=== PATIENT | female | born 1980 | race Caucasian/White ===

== ENCOUNTER 2024-07-28 13:47 | Emergency (ER) | payer BC ==
--- OUTSIDE RECORDS SUMMARY | 2024-07-28 13:53 | XMS REPORT | Clinical Summary ---
Author Name Unknown Organization [facility] Address [address] [place] [address] Care Team Providers Care Manager Ems Name Role Phone Felipe Law MD Unavailable [phone] Alejandrina Juan RN Primary Care Provide r Phyllis Barber Unavailable Phyllis Barber Unavailable Allergies Active Allergy Reactions Criticality Noted Date Comments Tramadol Itching 07/04/2019 Insomnia Medications Medication Sig Dispensed Refills Start Date End Date Status multivitamin with minerals tablet Take 1 tablet by mouth daily. Active CALCIUM CITRATE ORAL Take 500 mg by mouth 4 (four) times a day. Active ZINC ACETATE ORAL Take 30 mg by mouth every evening. Active dextroamphetamine-amp hetamine (MYDAYIS) 12.5 mg CT24 Take 12.5 mg by mouth daily. Active VITAMIN K2 ORAL Take 1 capsule by mouth daily. Active UNABLE TO FIND Take 4 tablets by mouth daily. Nutrafol: Biotin, Zinc, Sellenium Active cetirizine (ZyrTEC) 10 mg tablet Take 10 mg by mouth daily. Active Active Problems Problem Noted Date Diagnosed Date Lump in left breast 07/04/2019 Surgical History Surgery Date Site/Laterality Comments STOMACH SURGERY 10/05/2017 - 10/04/2018 Gastric Bypass UPPER GASTROINTESTINAL ENDOSCOPY 10/05/2017 - 10/04/2018 RECONSTRUCTION BREAST WITH BREAST IMPLANT 10/05/1999 - 10/04/2000 breast reduction Medical History Medical History Date Comments Migraine 2001 migraines with a ura Allergic rhinitis 1999 Sinusitis 1999 Fatty liver 2018 +Biopsy during G astric Bypass Anxiety 2008 Family History Medical History Relation Name Comments -Breast cancer Mother Ana Stewart diagnosed age 54 Relation Name Status Comments Mother Ana Stewart Social History Tobacco Use Types Packs/Day Years Used Date Smoking Tobacco: Never Smokeless Tobacco: Never Alcohol Use Standard Drinks/Week Comments Yes 0 (1 standard drink = 0.6 oz pur e alcohol) Education Answer Date Recorded What is the highest level of school you have completed or the highest degree you have received? Bachelor's degree (e.g., BA, AB, BS) 07/04/2019 Sex and Gender Information Value Date Recorded Sex Assigned at Not on file Gender Identity Not on file Sexual Orientation Not on file Obstetrics History Para Term AB IAB SAB Ectopic Multiple Livin g Live Births 3 1 Date Outcome GA Total Labor Labor//3rd Weight Sex Type Anes PTL Julieta A1 A5 Name Clin Para Comments Menarche: 14 Parity: 19 OBC: 15 Hormonal Therapy: None Last Pap: 11/2018 Abnormal Pap: None Last Lynne: None Last Colon: None Breast Bx: None Plan of Treatment Health Maintenance Due Date Last Done Comments COVID-19 Vaccine ( - 2023-2 5 season) 2024 Influenza Vaccine (#1) 2024 Pneumococcal Vaccine: Pediat rics (0 to 5 Years) and At-Risk Patients (6 to 64 Years) Aged Out No longer eligi ble based on patient's age to complete this topic Care Teams Manager Ems Relationship Specialty Start Date End Date Felipe Law MD [address] [facility] [address] [place] [address] PCP - External Primary Care Provider Family Practice 06/28/19 Alejandrina Jaun RN [facility] [place], [place] [id number] [email or web address] PCP - General Cancer Prevention 06/30/19 Phyllis Barber [address] [facility] [address] [place] [address] PCP - External Referring 04/22/23 Phyllis Barber [address] [address] PCP - External Follow Up A 04/22/23
[2024-07-28 17:24] LABS: Absolute Basophils 0.1 K/uL (0-0.5); Absolute Eosinophils 0.1 K/uL (0-0.5); Absolute Monocytes 0.4 K/uL (0.1-1.3); Absolute Neutrophil 5.6 K/uL (1.8-8.0); Basophils % 0.9 % (0-1.3); Eosinophils % 1.2 % (0-4.4); Hematocrit 35.7 % (36.0-45.0); Hemoglobin 11.3 g/dL (12.0-15.0); Lymphocytes % 14.1 % (15.3-44.8); MCH 27.7 pg (27.0-35.0); MCHC 31.7 g/dL (32.0-36.0); MCV 87.3 fL (80-100); MPV 8.5 fL (7.6-11.3); Monocytes % 6.1 % (3.3-12.3); Neutrophils % 77.7 % (41.7-73.7); Platelets 249 thou/uL (152-406); RBC Red Blood Cell Count 4.09 M/uL (3.86-4.86); Red Cell Distribution Width 19.9 % (12.1-15.2)
[2024-07-28 17:49] LABS: Albumin 2.6 g/dL (3.4-5.0); Albumin/Globulin Ratio 0.6 (1.1-1.8); Anion Gap 12.1 mEq/L (5.0-15.0); Bilirubin Total 1.3 mg/dL (0.2-1.0); Globulin 4.1 g/dL (2.3-3.5); Magnesium 1.5 mg/dL (1.6-2.4); Potassium 3.1 mEq/L (3.5-5.1); Protein, Total 6.7 g/dL (6.4-8.2)
--- NOTE | 2024-07-28 17:58 | RAD REPORT ---
EXAMINATION: CT Abdomen Pelvis W Contrast CLINICAL INDICATION: Female, 43 years old. ABD PAIN TECHNIQUE: CT abdomen and pelvis was performed, after the administration of 100 mL Isovue 300 intrave nously, as per department protocol. Axial, sagittal and coronal reconstructions were obtained. One or more of the following dose reduction techniques were used: Automated exposure control, adjustment of the mA and kV according to patient size, and iterative reconstruction. Unless otherwise specified, incidental findings do not require dedicated imaging follow-up. COMPARISON: No prior exam. FINDINGS: LOWER CHEST: The visualized lung bases are clear. LIVER: Normal in size and contour. Marked diffuse parenchymal hypoattenuation. No focal lesion. BILIARY SYSTEM: No suspicious abnormalities. SPLEEN: Normal size. No focal lesion. PANCREAS: No mass, ductal dilation, or ozzy-pancreatic fluid. Fat stranding and soft tissue swelling centered on the retroperitoneum, at the level of the uncinate process/third part of the duodenum. Mild duodenal wall thickening and mucosal hyperenhancement in this region. No extraluminal gas or fluid collections. ADRENALS: Normal; no mass. KIDNEYS: Normal size and contour. No hydronephrosis. URINARY BLADDER: Unremarkable. GASTROINTESTINAL TRACT: Sequelae of Lidia-en-Y gastric bypass. No evidence of free air, significant in tra-abdominal free fluid, bowel obstruction or abscess. Duodenal findings as above. APPENDIX: Normal appendix. LYMPH NODES: No lymphadenopathy. MUSCULOSKELETAL: No acute or suspicious osseous abnormality. ADDITIONAL FINDINGS: None. IMPRESSION: Inflammatory changes with fat stranding centered on the retroperitoneum at the level of the enteric u ncinate process and third part of the duodenum, may relate to focal pancreatitis, duodenitis, or an occult duodenal ulcer, although no evidence of extraluminal gas or abnormal collections is noted. Pronounced diffuse parenchymal hepatic hypoattenuation suggesting steatosis. Other findings as above.
[2024-07-28 18:05] LABS: Specific Gravity > 1.030 (1.005-1.030)
[2024-07-28 18:07] LABS: Urine Bacteria <20 /HPF (<20); Urine Bilirubin NEGATIVE (Negative); Urine Blood Negative (Negative); Urine Clarity Turbid (Clear); Urine Color Yellow (Yellow); Urine Culture Reflex Order NOT NEEDED; Urine Glucose NEGATIVE (Negative); Urine Ketones 1+ (Negative); Urine Microscopic Reflex YN ORDER UMIC; Urine Mucus Slight /HPF (None Seen); Urine Nitrite NEGATIVE (Negative); Urine Protein TRACE (Negative); Urine Urobilinogen 1+ (Normal)
[2024-07-28] MEDS ORDERED: ONDANSETRON 4 MG/2 ML VIAL ONE (18:07)
[2024-07-28] MEDS ORDERED: FAMOTIDINE 20 MG/2 ML VIAL IV ONE (18:08)
[2024-07-28] MEDS ORDERED: MORPHINE 4 MG/ML SYR ONE ×2 (18:08→21:47)
[2024-07-28] MEDS ORDERED: NA CHLORIDE 0.9% 1,000 ML ONE ×2 (18:08→21:47)
[2024-07-28 18:16] LABS: Barbiturates NEGATIVE (NEGATIVE); Benzodiazepines NEGATIVE (NEGATIVE); Cocaine NEGATIVE (NEGATIVE); METHAMPHETAM NEGATIVE (NEGATIVE); Methadone NEGATIVE (NEGATIVE); Opiates NEGATIVE (NEGATIVE); Phencyclidine NEGATIVE (NEGATIVE); THC Cannibis NEGATIVE (NEGATIVE)
[2024-07-28 18:17] LABS: Specific Gravity > 1.030 (1.005-1.030)
[2024-07-28] MEDS ORDERED: PANTOPRAZOLE 40 MG INJ ONE (18:40)
[2024-07-28] MEDS ORDERED: MAGNESIUM SULFATE 1 gm IVPB 1 GM/100 ML BAG IV ONE (18:40)
--- NOTE | 2024-07-28 19:24 | EDPHYS ---
Physician Documentation [facility] Name: Nikia Stewart Age: 43 yrs Sex: Female : 1980 Arrival Date: 07/28/2024 Time: 13:47 Bed 13 Private MD: ED Physician Grant Trevino HPI: 07/28 14:05 This 43 yrs old Female presents to ER via Ambulatory with complaints of Abdominal Pain. cp 14:05 The patient presents with abdominal pain mid upper and mid lower. Onset: The cp symptoms/episode began/occurred 3 day(s) ago. The symptoms radiate to low and mid back. Associated signs and symptoms: Pertinent positives: anorexia, nausea, Pertinent negatives: blood in stools, chest pain, constipation, fever, vomiting, vomiting blood. The symptoms are described as crampy, sharp. Modifying factors: the symptoms are aggravated by pressure. Severity of pain: in the emergency department the pain is unchanged despite home interventions. Historical: - Allergies: 13:59 No Known Allergies; db - PMHx: 13:59 ADHD; db - PSHx: 13:59 GASTRIC BYPASS; RIGHT ANKLE; db - Immunization history:: Adult Immunizations unknown. - Infectious Disease History:: Denies. - Social history:: Smoking status: Patient denies any tobacco usage or history of. ROS: 14:09 Constitutional: Positive for poor PO intake, Negative for body aches, chills, fever, cp 14:09 ENT: Negative for drainage from ear(s), ear pain, sore throat, difficulty swallowing, difficulty handling secretions, 14:09 Cardiovascular: Negative for chest pain, edema, palpitations, 14:09 Respiratory: Negative for cough, shortness of breath, wheezing, 14:09 Abdomen/GI: Positive for abdominal pain, nausea, anorexia, Negative for vomiting, diarrhea, constipation, black/tarry stool, rectal bleeding, 14:09 Back: Positive for radiated pain, Exam: 14:15 Constitutional: The patient appears in no acute distress, alert, awake, non-toxic, well cp developed, well nourished, uncomfortable, 14:15 Head/Face: Normocephalic, atraumatic. cp 14:15 Eyes: Periorbital structures: appear normal, Conjunctiva: normal, no exudate, no injection, Sclera: no appreciated abnormality, Lids and lashes: appear normal, bilaterally, 14:15 ENT: External ear(s): are unremarkable, Nose: is normal, Mouth: Lips: moist, Oral mucosa: pink and intact, moist, Posterior pharynx: Airway: no evidence of obstruction, patent, 14:15 Neck: ROM/movement: is normal, is supple, without pain, no range of motions limitations, 14:15 Chest/axilla: Inspection: normal, 14:15 Cardiovascular: Rate: tachycardic, Rhythm: regular, 14:15 Respiratory: the patient does not display signs of respiratory distress, Respirations: normal, no use of accessory muscles, no retractions, labored breathing, is not present, Breath sounds: are clear throughout, no decreased breath sounds, no stridor, no wheezing, 14:15 Abdomen/GI: Inspection: distension, that is mild, Bowel sounds: active, all quadrants, Palpation: soft, in all quadrants, moderate abdominal tenderness, in all quadrants, 14:15 Back: CVA tenderness, is absent, 14:15 Neuro: Orientation: to person, place \T\ time. Mentation: is normal, 18:30 ECG was reviewed by the Attending Physician. Vital Signs: 13:55 BP 120 / 96; Pulse 130; Resp 18; Temp 98.5(O); Pulse Ox 100% ; Weight 72.57 kg; Height db 5 ft. 1 in. ; Pain 8/10; 18:27 BP 128 / 103; Pulse 106; Pulse Ox 100% on R/A; MAP 112 mmHg; Pain 8/10; tm6 22:15 BP 129 / 100; Pulse 91; Resp 17; Pulse Ox 100% ; jj7 23:00 BP 110 / 75; Pulse 75; Resp 15; Pulse Ox 100% ; jj7 07/29 00:09 BP 131 / 72; Pulse 106; Resp 16; Pulse Ox 100% ; jj7 07/28 13:55 Body Mass Index 30.23 (72.57 kg, 154.94 cm) db 07/28 13:55 Pain Scale: Adult db 18:27 Pain Scale: Adult tm6 MDM: 07/28 13:56 Medical Screening Exam initiated cp 18:00 Differential diagnosis: appendicitis, bowel obstruction, cholecystitis, Cholelithiasis, cp non-specific abd pain, pancreatitis, Peptic Ulcer Disease, Perf. Duodenal Ulcer, Perf. Gastric Ulcer, Pyelonephritis, Ureterolithiasis, urinary tract infection. 20:05 ED course: transfer requests by DR Beard for GI services due to CT reports showing concern for inflammation in area of duodenum and patient's past surgical history of gastric bypass surgery. 20:20 Data reviewed: vital signs, nurses notes, lab test result(s), EKG, radiologic studies, cp CT scan, ultrasound. 20:20 I considered the following discharge prescriptions or medication management in the emergency department Medications were administered in the Emergency Department. See MAR. Counseling: I had a detailed discussion with the patient and/or guardian regarding the historical points, exam findings, and any diagnostic results supporting the discharge/admit diagnosis, lab results, radiology results, the need to transfer to another facility, [facility] does not immediately have the required specialist, as requested by hospitalist, DR Beard. 23:47 Management of patient was discussed with the following: hospitalist, DR Schrader at [facility], will accept patient as transfer. 07/28 14:01 Order name: CBC with Diff; Complete Time: 17:40 07/28 17:41 Interpretation: Normal except: HGB 11.3; HCT 35.7; MCHC 31.7; RDW 19.9; CHUCHO% 77.7; LYM% cp 14.1. 07/28 14:01 Order name: CMP; Complete Time: 18:23 07/28 18:23 Interpretation: Normal except: K 3.1; AST 126; ALK 184; BILIT 1.3; ALB 2.6; GLOB 4.1; cp A/G 0.6. 07/28 14:01 Order name: Lipase; Complete Time: 18:23 07/28 18:24 Interpretation: Abnormal: LIP 305. 07/28 14:01 Order name: Test, Urine; Complete Time: 18:23 07/28 14: Order name: Urinalysis w/ reflexes; Complete Time: 18:23 07/28 14: Order name: Phosphorus; Complete Time: 18:23 07/28 14:01 Order name: Magnesium; Complete Time: 18:23 07/28 18:24 Interpretation: Reviewed. 07/28 14: Order name: UDS; Complete Time: 18:23 07/28 14:01 Order name: CT Abd/Pelvis - PO and IV Contrast; Complete Time: 18:23 cp 07/28 18:25 Interpretation: Report reviewed. cp 07/28 18:38 Order name: US Abdomen Limited: gallbladder; Complete Time: 20:16 cp 07/28 20:16 Interpretation: Report reviewed, Report reviewed. cp 07/28 14:01 Order name: IV Saline Lock; Complete Time: 18:18 cp 07/28 14:01 Order name: Labs collected and sent; Complete Time: 18:18 cp 07/28 14:01 Order name: EKG - Nurse/Tech; Complete Time: 18:27 cp EC:30 Rate is 87 beats/min. Rhythm is regular. WA interval is normal. QRS interval is normal. cp QT interval is normal. T waves are Inverted in lead aVR. Interpreted by me. Reviewed by me. Administered Medications: 18:18 Drug: Famotidine IVP 20 mg IVP once; dilute with 10 mL 0.9% NaCl; give over 2 minutes tm6 Route: IVP; Site: right antecubital; 19:20 Follow up: Response: No adverse reaction tm6 18:18 Drug: Ondansetron IVP 4 mg IVP once; over 2 minutes Route: IVP; Site: right antecubital;tm6 19:21 Follow up: Response: No adverse reaction tm6 18:18 Drug: morphine IVP or IV 4 mg IVP once over 4 mins Route: IVP; Infused Over: 4 mins; tm6 Site: right antecubital; 19:21 Follow up: Response: No adverse reaction tm6 18:18 Drug: NS 0.9% IV 1000 ml IV at 1 bolus Per protocol; to be given as a bolus over 60 tm6 minutes Route: IV; Rate: 1 bolus; Site: right antecubital; 19:20 Follow up: Response: No adverse reaction; IV Status: Completed infusion; IV Intake: tm6 1000ml 18:37 Not Given (Physician Discretion): potassiumeffervescent tablet 50 meq PO once; dissolve cp in 4 ounces of water or juice 19:45 Drug: Magnesium Sulfate IVPB 1 grams IVPB once over 1 hrs Route: IVPB; Infused Over: 1 tm6 hrs; Site: right antecubital; 21:57 Follow up: Response: No adverse reaction; IV Status: Completed infusion; IV Intake: tm6 100ml 19:45 Drug: Pantoprazole IVP 40 mg IVP once Route: IVP; Site: right antecubital; tm6 21:57 Follow up: Response: No adverse reaction tm6 22:00 Follow up: Response: Marked relief of symptoms jj7 21:56 Drug: NS 0.9% IV 1000 ml IV at 125 ml/hr once Route: IV; Rate: 125 ml/hr; Site: right tm6 antecubital; 07/29 01:27 Follow up: IV Status: Infusion continued upon transfer jj7 07/28 21:57 Drug: morphine IVP or IV 4 mg IVP once over 4 mins Route: IVP; Infused Over: 4 mins; tm6 Site: right antecubital; 22:00 Follow up: Response: Marked relief of symptoms; Pain is decreased jj7 21:57 Drug: Potassium PO Effervescent Tablet 50 mEq PO once; dissolve in 4 ounces of water or tm6 juice Route: PO; 22:00 Follow up: Response: No adverse reaction jj7 Disposition: 07/30 00:23 Chart complete. cp Disposition Summary: 07/28/24 20:05 Transfer Ordered Notes: Reason: Higher level of care cp Condition: Stable(07/28/24 20:05) cp Problem: new(07/28/24 20:05) cp Symptoms: have improved(07/28/24 20:05) cp Transfer Location: [facility](07/28/24 23:51) cp Accepting Physician: DR Schrader(07/29/24 01:26) jj7 Diagnosis - Abdominal pain, unspecified cp - Other acute pancreatitis without necrosis or infection(07/28/24 21:51) cp - Hypomagnesemia cp - Hypokalemia cp Forms: - Medication Reconciliation Form cp - SBAR form cp Signatures: Dispatcher [employer] EDMS Grant Chilel PA PA cp Johnson, Juwairiyah, RN RN jj7 Orquidea Murillo RN RN db Masterson, Tawney, RN RN tm6 Corrections: (The following items were deleted from the chart) 07/28 14:02 14:02 CBC+H.LAB.BRZ ordered. EDMS EDMS 14:02 14:02 COMPREHENSIVE METABOLIC PANEL+C.LAB.BRZ ordered. EDMS EDMS 14:02 14:02 LIPASE+C.LAB.BRZ ordered. EDMS EDMS 14:02 14:02 Test, Urine+UC.LAB.BRZ ordered. EDMS EDMS 14:02 14:02 Urinalysis+U.LAB.BRZ ordered. EDMS EDMS 14:02 14:02 PHOSPHORUS+C.LAB.BRZ ordered. EDMS EDMS 14:02 14:02 MAGNESIUM+C.LAB.BRZ ordered. EDMS EDMS 14:02 14:02 URINE DRUG SCREEN+UC.LAB.BRZ ordered. EDMS EDMS 14:02 14:02 Abdomen Pelvis W Con+CT.RAD.BRZ ordered. EDMS EDMS 20:04 19:24 Inpatient Admission cp cp 20:04 19:24 Prince Kisha cp cp 20:04 19:24 Telemetry/MedSurg (Inpatient) cp cp 20:04 19:24 Stable cp cp 20:04 19:24 new cp cp 20:04 19:24 have improved cp cp 20:04 19:24 Standard cp cp 20:04 19:24 cp cp 20:04 19:24 Other acute pancreatitis without necrosis or infection cp cp 21:51 20:05 doctor cp cp 23:51 20:05 [facility] cp cp 23:51 21:51 doctor cp cp 23:54 23:51 ED course: transfer requests by DR Beard for GI services due to CT reports cp showing concern for inflammation in area of duodenum and patient's past surgical history of gastric bypass surgery. cp 23:55 23:51 doctor cp cp 23:56 23:55 DR Schrader cp cp 07/29 01:26 07/28 23:56 DR Schrader cp jj7
--- NOTE | 2024-07-28 19:24 | ER ---
Nurse's Notes [facility] Name: Nikia Stewart Age: 43 yrs Sex: Female : 1980 Arrival Date: 07/28/2024 Time: 13:47 Bed 13 Private MD: Diagnosis: Abdominal pain, unspecified;Other acute pancreatitis without necrosis or infection;Hypomagnesemia;Hypokalemia Presentation: 07/28 13:55 Chief complaint: Patient states: ABD PAIN X 3 DAYS. LOSS OF APPETITE. NAUSEA AND DRY db HEAVING. HX OF GASTRIC BYPASS. LAST BOWEL MOVEMENT 3 DAYS AGO ABD PAIN WITH SITTING AND MOVING. Coronavirus screen: Client denies travel out of the [place] in the last 14 days. At this time, the client does not indicate any symptoms associated with coronavirus-19. Ebola Screen: Patient negative for fever greater than or equal to 101.5 degrees Fahrenheit, and additional compatible Ebola Virus Disease symptoms Patient denies exposure to infectious person. Patient denies travel to an Ebola-affected area in the 21 days before illness onset. No symptoms or risks identified at this time. Initial Sepsis Screen: Does the patient meet any 2 criteria? HR > 90 bpm. No. Patient's initial sepsis screen is negative. Does the patient have a suspected source of infection? No. Patient's initial sepsis screen is negative. Risk Assessment: Do you want to hurt yourself or someone else? Patient reports no desire to harm self or others. Onset of symptoms was July 25, 2024. 13:55 Method Of Arrival: Ambulatory db 13:55 Acuity: HERBERT 3 db Triage Assessment: 13:59 General: Appears in no apparent distress. comfortable, Behavior is calm, cooperative, db appropriate for age. Pain: Complains of pain in abdomen. Neuro: Level of Consciousness is awake, alert, obeys commands, Oriented to person, place, time, situation. Respiratory: Airway is patent Respiratory effort is even, unlabored, Respiratory pattern is regular, symmetrical. GI: Abdomen is non-distended, Reports lower abdominal pain, upper abdominal pain, nausea. Historical: - Allergies: 13:59 No Known Allergies; db - PMHx: 13:59 ADHD; db - PSHx: 13:59 GASTRIC BYPASS; RIGHT ANKLE; db - Immunization history:: Adult Immunizations unknown. - Infectious Disease History:: Denies. - Social history:: Smoking status: Patient denies any tobacco usage or history of. Screenin:27 [facility] ED Fall Risk Assessment (Adult) History of falling in the last 3 months, tm6 including since admission No falls in past 3 months (0 pts) Confusion or Disorientation No (0 pts) Intoxicated or Sedated No (0 pts) Impaired Gait No (0 pts) Mobility Assist Device Used No (0 pt) Altered Elimination No (0 pt) Score/Fall Risk Level 0 - 2 = Low Risk Oriented to surroundings, Maintained a safe environment, Educated pt \T\ family on fall prevention, incl call for assistance when getting out of bed. Abuse screen: Denies threats or abuse. Denies injuries from another. Nutritional screening: No deficits noted. Tuberculosis screening: No symptoms or risk factors identified. Assessment: 18:27 General: Appears in no apparent distress. Pain: Complains of pain in abdomen Pain tm6 currently is 8 out of 10 on a pain scale. Neuro: Level of Consciousness is awake, alert, obeys commands, Oriented to person, place, time, situation. Cardiovascular: Patient's skin is warm and dry. Respiratory: Airway is patent Respiratory effort is even, unlabored, Respiratory pattern is regular, symmetrical. GI: Abdomen is flat, non-distended, Bowel sounds present X 4 quads. Abd is soft and non tender X 4 quads. : No signs and/or symptoms were reported regarding the genitourinary system. EENT: No signs and/or symptoms were reported regarding the EENT system. Derm: No signs and/or symptoms reported regarding the dermatologic system. Musculoskeletal: No signs and/or symptoms reported regarding the musculoskeletal system. 22:15 Reassessment: ASSUMED CARE OF PT. PT SITTING UP IN BED ON PHONE. NO DISTRESS NOTED. PT jj7 GIVEN UPDATE ON TRANSFER STATUS. VS STABLE. CALL BISWAS IN REACH. 23:30 Reassessment: PT SITTING IN BED. NO PAIN OR DISTRESS. INFORMED OF PLAN AND UPDATE ON jj7 TRANSFER. PT STATES SHE IS HUNGRY. MIKEY PAGE INFORMED AND STATES SHE CAN HAVE A FEW CRACKERS. 07/29 00:34 Reassessment: ATTEMPTED TO CALL REPORT TO [facility]. STAFF STATES THE NURSE marcelina IS UNAVAILABLE AND TO CALL BACK IN 10 MINUTES. 00:54 Reassessment: REPORT GIVEN TO ROSIBEL SCOTT AT [facility]. jj7 01:19 Reassessment: [facility] AT BEDSIDE TO TRANSFER PT. jj7 Vital Signs: 07/28 13:55 BP 120 / 96; Pulse 130; Resp 18; Temp 98.5(O); Pulse Ox 100% ; Weight 72.57 kg; Height db 5 ft. 1 in. ; Pain 8/10; 18:27 BP 128 / 103; Pulse 106; Pulse Ox 100% on R/A; MAP 112 mmHg; Pain 8/10; tm6 22:15 BP 129 / 100; Pulse 91; Resp 17; Pulse Ox 100% ; jj7 23:00 BP 110 / 75; Pulse 75; Resp 15; Pulse Ox 100% ; jj7 07/29 00:09 BP 131 / 72; Pulse 106; Resp 16; Pulse Ox 100% ; jj7 07/28 13:55 Body Mass Index 30.23 (72.57 kg, 154.94 cm) db 07/28 13:55 Pain Scale: Adult db 18:27 Pain Scale: Adult tm6 ED Course: 07/28 13:53 Patient arrived in ED. mr 13:53 Grant Chilel PA is PHCP. cp 13:53 Grant Trevino MD is Attending Physician. cp 13:59 Triage completed. db 14:01 Arm band placed on Patient placed in waiting room. db 17:09 CT Abd/Pelvis - PO and IV Contrast In Process Unspecified. EDMS 18:00 Taj Lujan RN is Primary Nurse. tm6 18:27 Patient has correct armband on for positive identification. Placed in gown. Bed in low tm6 position. Call light in reach. Side rails up X 1. Provided Education on: use of call biswas. Client placed on continuous cardiac and pulse oximetry monitoring. NIBP monitoring applied. child monitor on. Pulse ox on. NIBP on. Door closed. Noise minimized. Warm blanket given. Pillow given. 18:27 EKG done, by ED staff, reviewed by Grant JENSEN. Inserted saline lock: 22 gauge in tm6 right antecubital area, using aseptic technique. Blood collected. Flushed with 10 mL NS. 19:22 US Abdomen Limited: gallbladder In Process Unspecified. EDMS 19:23 Prince Beard MD is Hospitalizing Provider. cp 07/29 01:19 No provider procedures requiring assistance completed. Patient transferred, IV remains jj7 in place. 02:00 2150 called [facility] for 1 hour and no answer. 2252 called [facility] talked to reza Manzo 2320 Anais called back and no beds. 02:11 2320 called [facility]. [facility] talked to Karolina.2 Dr. Jacob Schrader accepted pt Karolina cobb RN admin approval bed 909 report number [phone] fax number [phone]. called [facility] talked to alvin. Administered Medications: 07/28 18:18 Drug: Famotidine IVP 20 mg IVP once; dilute with 10 mL 0.9% NaCl; give over 2 minutes tm6 Route: IVP; Site: right antecubital; 19:20 Follow up: Response: No adverse reaction tm6 18:18 Drug: Ondansetron IVP 4 mg IVP once; over 2 minutes Route: IVP; Site: right antecubital;tm6 19:21 Follow up: Response: No adverse reaction tm6 18:18 Drug: morphine IVP or IV 4 mg IVP once over 4 mins Route: IVP; Infused Over: 4 mins; tm6 Site: right antecubital; 19:21 Follow up: Response: No adverse reaction tm6 18:18 Drug: NS 0.9% IV 1000 ml IV at 1 bolus Per protocol; to be given as a bolus over 60 tm6 minutes Route: IV; Rate: 1 bolus; Site: right antecubital; 19:20 Follow up: Response: No adverse reaction; IV Status: Completed infusion; IV Intake: tm6 1000ml 18:37 Not Given (Physician Discretion): potassiumeffervescent tablet 50 meq PO once; dissolve cp in 4 ounces of water or juice 19:45 Drug: Magnesium Sulfate IVPB 1 grams IVPB once over 1 hrs Route: IVPB; Infused Over: 1 tm6 hrs; Site: right antecubital; 21:57 Follow up: Response: No adverse reaction; IV Status: Completed infusion; IV Intake: tm6 100ml 19:45 Drug: Pantoprazole IVP 40 mg IVP once Route: IVP; Site: right antecubital; tm6 21:57 Follow up: Response: No adverse reaction tm6 22:00 Follow up: Response: Marked relief of symptoms j7 21:56 Drug: NS 0.9% IV 1000 ml IV at 125 ml/hr once Route: IV; Rate: 125 ml/hr; Site: right tm6 antecubital; 07/29 01:27 Follow up: IV Status: Infusion continued upon transfer jj7 07/28 21:57 Drug: morphine IVP or IV 4 mg IVP once over 4 mins Route: IVP; Infused Over: 4 mins; tm6 Site: right antecubital; 22:00 Follow up: Response: Marked relief of symptoms; Pain is decreased jj7 21:57 Drug: Potassium PO Effervescent Tablet 50 mEq PO once; dissolve in 4 ounces of water or tm6 juice Route: PO; 22:00 Follow up: Response: No adverse reaction j7 Medication: 18:27 VIS not applicable for this client. tm6 Intake: 19:20 IV: 1000ml; Total: 1000ml. tm6 21:57 IV: 100ml; Total: 1100ml. 6 Outcome: 19:24 Decision to Hospitalize by Provider. cp 20:05 ER care complete, transfer ordered by . cp 07/29 01:19 Transferred by ground EMS [facility]. to [facility], Transfer j7 form completed. X-rays sent w/ patient. Condition: improved 01:26 Patient left the ED. jj7 Signatures: Dispatcher [employer] EDMS Nickie Taylor Mary, Reg Reg mr Grant Chilel, MIKEY PA Michelle Leonard RN RN jj7 Orquidea Murillo RN RN db Masterson, Tawney, RN RN 6
--- NOTE | 2024-07-28 20:01 | RAD REPORT ---
EXAMINATION: US Abdomen Exam Limited CLINICAL HISTORY: [facility] MAIN Y ABD PAIN Bed Name: 13 COMPARISON: None. TECHNIQUE: Limited upper abdominal grayscale and color flow sonographic images. FINDINGS: Gallbladder: Normal. Bile ducts: No intrahepatic or extrahepatic biliary dilatation. Common bile duct measures 0.4 mm. Liver: Visualized portions of the liver demonstrate normal echogenicity with no suspicious findings. Fluid: No ascites. IMPRESSION: No abnormalities on right upper quadrant ultrasound.
[2024-07-28] MEDS ORDERED: POTASSIUM 25 MEQ EFFERV TAB ONE (21:46)
[2024-07-29 11:22] VITALS: TEMP 98.5; O2SAT 100
[2024-07-29 11:27] VITALS: BP 131/72
--- NOTE | 2024-07-29 14:12 | EKG ---
Test Date: 2024-07-28 Test Time: 18:25:12 Merchandise Team Manager: CAROLEE MEASUREMENT RESULTS: Intervals: Rate: 87 TX: 118 QRSD: 74 QT: 362 QTc: 435 [place]: P: 61 TX: 118 QRS: 30 T: 18 INTERPRETIVE STATEMENTS: Normal sinus rhythm with sinus arrhythmia Nonspecific T wave abnormality Abnormal ECG No previous ECG available for comparison Electronically Signed On 07-29-24 14:11:01 CDT by Tapan Allen
== END 2024-07-29 01:26 | disposition short-term general hospital (02) ==
LOC: ER 13:47
DX: K85.80 Other acute pancreatitis without necrosis or infection (principal); E83.42 Hypomagnesemia; E87.6 Hypokalemia; Z98.84 Bariatric surgery status
CPT/HCPCS: 96365; 96361; 93005; 85025; 81001; 36415; 83735; 81025; 84100; 83690; 80053; 80307; 74177; 76705; 96375; 99285; 96366; Q9967; J3475; J2470; J2405; J7030 ×2